=== PATIENT | female | born 1990 | race African-American/Black ===

== ENCOUNTER 2018-08-17 15:35 | Inpatient (IN) | payer MEDICAID ==
[~2018-08-17] VITALS: Ht 152.4 cm; Wt 46.9 kg
[2018-08-17] MEDS ORDERED: LORazepam 2 MG TABLET PO PRN (18:45)
[2018-08-17] MEDS ORDERED: HALOPERIDOL 5 MG TABLET PO PRN (18:45)
[2018-08-17 18:58] VITALS: BP 125/70
[2018-08-17] MEDS ORDERED: MAGNESIUM HYDROXIDE SUSPENSION 30 ML UDCUP PO PRN (20:45)
[2018-08-17] MEDS ORDERED: LOPERAMIDE HCL 2 MG CAPSULE PO PRN (20:45)
[2018-08-17] MEDS ORDERED: ALBUTEROL SULFATE HFA 90 MCG/PUFF 8 GM INHALER IH PRN (20:45)
[2018-08-17] MEDS ORDERED: DOCUSATE SODIUM 100 MG CAPSULE PO PRN (20:45)
[2018-08-17] MEDS ORDERED: PETROLATUM,WHITE 71 GM JELLY TP PRN (20:45)
[2018-08-17] MEDS ORDERED: CloNIDine HCL 0.1 MG TABLET PO PRN (20:45)
[2018-08-17] MEDS ORDERED: ONDANSETRON HCL 4 MG TABLET PO PRN (20:45)
[2018-08-17] MEDS ORDERED: GuaiFENesin/D-METHORPHAN [SUGAR-FREE] 200-20MG/10 ML SYRUP UDCUP PO PRN (20:45)
[2018-08-17] MEDS ORDERED: MAG HYDROX/AL HYDROX/SIMETH ES 30 ML SUSPENSION UDCUP PO PRN (20:45)
[2018-08-17] MEDS ORDERED: ACETAMINOPHEN 325 MG TABLET PO PRN (20:45)
[2018-08-17] MEDS ORDERED: IBUPROFEN 400 MG TABLET PO PRN (20:45)
[2018-08-18] MEDS: ZOLPIDEM TARTRATE 10 MG TABLET PO PRN ×2 (00:02→20:09)
[2018-08-18 01:30] VITALS: BP 116/82
[2018-08-18 08:48] LABS: BASOPHILS % (AUTO) 0.3 % (0.0-2.0); EOSINOPHILS % (AUTO) 1.2 % (1.0-6.0); HEMATOCRIT 40.9 % (36-46); HEMOGLOBIN 13.8 g/dL (12.0-16.0); LYMPHOCYTES # (AUTO) 2.1 K/uL (1.0-4.8); LYMPHOCYTES % (AUTO) 39.2 % (22.0-44.0); MEAN CORPUSCULAR HEMOGLOBIN 29.4 pg (26.0-34.0); MEAN CORPUSCULAR HGB CONC 33.7 G/dL (31.0-37.0); MEAN CORPUSCULAR VOLUME 87 fL (80-100); MONOCYTES # (AUTO) 0.6 K/uL (0.1-1.0); MONOCYTES % (AUTO) 11.4 % (2.0-9.0); NEUTROPHILS # (AUTO) 2.5 K/uL (1.8-7.7); NEUTROPHILS % (AUTO) 47.9 % (40.0-70.0); PLATELET COUNT (AUTO) 327 K/uL (150-450); RED BLOOD CELL COUNT(AUTO) 4.68 MIL/uL (4.00-5.20)
[2018-08-18 09:43] LABS: ALANINE AMINOTRANSFERASE 25 U/L (12-78); ALBUMIN 4.1 g/dL (3.4-5.0); ALKALINE PHOSPHATASE 70 U/L (46-116); ANION GAP 8 mmol/L (8-16); ASPARTATE AMINOTRANSFERASE 27 U/L (15-37); BILIRUBIN,TOTAL 0.4 mg/dL (0.1-1.0); CALCIUM, TOTAL 9.5 mg/dL (8.8-10.5); CARBON DIOXIDE 28 mmol/L (22-29); CHLORIDE 102 mmol/L (98-107); CHOL/HDL RATIO 2.5 (3.9-5.7); CHOLESTEROL 120 mg/dL (131-200); FREE T4 (FREE THYROXINE) 1.46 ng/dL (0.76-1.46); GLOMERULAR FILTR. RATE CALC > 60 mL/min (>60); GLUCOSE,RANDOM 108 mg/dL (70-110); HCG,QUANTITATIVE < 1 mIU/mL (0-6); HDL CHOLESTEROL 48 mg/dL (40-60); LDL CHOL (CALC.) 64 mg/dL (0-130); POTASSIUM 3.5 mmol/L (3.5-5.1); SODIUM SERUM 138 mmol/L (136-145); THYROID STIMULATING HORMONE 1.31 uIU/mL (0.36-3.74); TOTAL PROTEIN, SERUM 7.8 g/dL (6.4-8.2); TRIGLYCERIDES 40 mg/dL (15-150); UREA NITROGEN, BLOOD 13 mg/dL (7-18)
[2018-08-18] MEDS: OLANZapine 5 MG RAPDIS TABLET PO SCH ×2 (13:09→16:10)
[2018-08-18 16:10] VITALS: BP 112/67
[2018-08-19 06:15] VITALS: BP 120/73
[2018-08-19 08:30] VITALS: BP 120/70
[2018-08-19] MEDS: OLANZapine 5 MG RAPDIS TABLET PO SCH (08:30)
[2018-08-19] MEDS ORDERED: OLAN5TAB40 PO (10:30)
== END 2018-08-19 14:45 | disposition home or self-care (01) | DRG 54 ==
LOC: B3A 19:04
PROVIDERS: ADMIT Psychiatry & Neurology Child & Adolescent Psychiatry; ATTEND Psychiatry & Neurology Child & Adolescent Psychiatry
DX: G44.209 Tension-type headache, unspecified, not intractable (principal); F20.9 Schizophrenia, unspecified; F99 Mental disorder, not otherwise specified; F31.9 Bipolar disorder, unspecified; G47.00 Insomnia, unspecified; K59.00 Constipation, unspecified; Z68.20 Body mass index [BMI] 20.0-20.9, adult
CPT/HCPCS: 83036; 84439; 84443; 87081